=== PATIENT | male | born 1995 | race American Indian/Alaskan Native ===

== ENCOUNTER 2017-08-16 10:09 | Emergency (ER) | payer MEDICAID ==
[2017-08-16 10:33] VITALS: BP 131/70; PULSE 71; TEMP 99.1; O2SAT 99
[2017-08-16 10:43] VITALS: RESP 18
--- NOTE | 2017-08-16 11:17 | ED PDOC ---
HPI: Nose Bleed Time Seen by Provider: 08/16/17 11:01 Chief Complaint (Nursing): ENT Problem Chief Complaint (Provider): Nasal bone injury History Per: Patient Additional Complaint(s): Pt is a 21 yo male, no PMH, presents to ED for evaluation of nasal bone injury. states he was hit on the face while playing volleyball in school this a.m. Swelling noted under rt eye and on nose. Denies LOC. Past Medical History Reviewed: Historical Data, Nursing Documentation, Vital Signs Vital Signs: Last Vital Signs Temp 99.1 F 08/16/17 10:32 Pulse 71 08/16/17 10:32 Resp 18 08/16/17 10:38 BP 131/70 08/16/17 10:32 Pulse Ox 99 08/16/17 10:32 - Medical History PMH: No Chronic Diseases - Surgical History Surgical History: No Surg Hx - Family History Family History: States: No Known Family Hx - Living Arrangements Living Arrangements: With Family - Social History Current smoker - smoking cessation education provided: No Alcohol: None Drugs: Denies - Home Medications Home Medications: Ambulatory Orders Medication Instructions Recorded Ibuprofen [Motrin] 600 mg PO Q6 #20 tab 08/16/17 - Allergies Allergies/Adverse Reactions: Allergies Allergy/AdvReac Type Severity Reaction Status Date / Time No Known Allergies Allergy Verified 08/16/17 10:37 Review of Systems ROS Statement: Except As Marked, All Systems Reviewed And Found Negative ENT: Positive for: Nose Pain Physical Exam - Reviewed Nursing Documentation Reviewed: Yes Vital Signs Reviewed: Yes - Physical Exam Appears: Positive for: Well, Non-toxic, No Acute Distress Head Exam: Positive for: ATRAUMATIC, NORMAL INSPECTION, NORMOCEPHALIC Skin: Positive for: Normal Color, Warm, DRY Eye Exam: Positive for: EOMI, Normal appearance, PERRL ENT: Positive for: Other (tenderness over nasal bridge. (+) ecchymosis. Superficial araion to right side of nore.. no crepitus. nosetal hematoma) Neck: Positive for: Normal, Painless ROM Cardiovascular/Chest: Positive for: Regular Rate, Rhythm Respiratory: Positive for: CNT, Normal Breath Sounds Gastrointestinal/Abdominal: Positive for: Normal Exam, Bowel Sounds, Soft Back: Positive for: Normal Inspection Extremity: Positive for: Normal ROM Neurologic/Psych: Positive for: Alert, Oriented - ECG O2 Sat by Pulse Oximetry: 99 Medical Decision Making Medical Decision Making: Pt declined medications at this time. XR: Non displaced nasal bone fracture, as read by BRIAN Disposition - Clinical Impression Clinical Impression: Nasal bones, closed fracture - Patient ED Disposition Is Patient to be Admitted: No - Disposition Disposition: Routine/Home Disposition Time: 14:00 Condition: STABLE Prescriptions: Ibuprofen [Motrin] 600 mg PO Q6 #20 tab Instructions: Nasal Fracture (ED) Forms: [facility] ([place]), [facility] ED School/Work Excuse
--- NOTE | 2017-08-16 14:11 | RAD ---
PROCEDURE: Radiographs of Nasal Bones HISTORY: hit with fist in volleyball game COMPARISON: None available. TECHNIQUE: Frontal and lateral radiographs of the nasal bones. FINDINGS: No fracture of nasal bones visualized. No destructive lesion. IMPRESSION: No nasal bone fracture visualized.
== END 2017-08-16 13:53 | disposition home or self-care (01) ==
LOC: H.ER 10:09
DX: S02.2XXA Fracture of nasal bones, initial encounter for closed fracture (principal); W21.9XXA Striking against or struck by unspecified sports equipment, initial encounter; Y93.68 Activity, volleyball (beach) (court); Y92.219 Unspecified school as the place of occurrence of the external cause